=== PATIENT | female | born 2000 | race Two or more races ===

== ENCOUNTER → 2018-10-21 | Outpatient (CLI) | payer OTHER ==
--- NOTE | 2018-10-23 10:27 | MR ---
EXAMINATION TYPE: MR ankle LT wo con DATE OF EXAM: 10/21/2018 COMPARISON: None HISTORY: Left ankle pain with known left ankle sprain. She describes swelling and limited range of mo tion since August 2017. TECHNIQUE: Multiplanar, multisequence images of the left ankle were acquired per department protocol without int ravenous contrast. FINDINGS: There is minimal dorsal subcutaneous edema over the tibiotalar joint and hindfoot extending laterally at the ankle joint. There is fluid surrounding the tibialis posterior tendon with tendon thickening the flexor digitorum longus and flexor hallucis longus are unremarkable. Anterior to the tendons there is a small tibiotal ar joint effusion without internal complexity. There are long segment split tears identified of both the peroneus brevis and peroneus longus such as on axial series 301 image 12 seen subtly and on image 9 and 10 seen within the Proteus longus and pe roneal brevis respectively on these images. There is superficial subcutaneous fat stranding overlying these tendons on image 11. Increased signal is seen at the insertion of the Proteus brevis without f ifth metatarsal abnormal bone marrow signal. There is abnormal bone marrow signal of the medial malleolus and medial talus identified as kissing c ontusions from impaction injury. There is a complete tear of the anterior talofibular ligament and pa rtial-thickness tear of the posterior talofibular ligament. The deltoid ligament appears intact with very minimal increased signal suggesting low-grade injury. No discrete fracture line is seen on T1 sequences. The plantar fascia and Achilles tendon appear unre markable. The talar dome is intact. The sinus tarsus is unremarkable. IMPRESSION: 1. Full-thickness tear of the anterior talofibular ligament and partial thickness tear of the posteri or talofibular ligament. 2. Osseous kissing contusions of the medial malleolus and medial talus without linear T1 signal to in dicate occult fracture. 3. Long segment split tears of the Proteus brevis and peroneal longus measuring approximately 3 cm ea ch. These are seen distal to the ankle joint. 4. Posterior tibialis tenosynovitis 5. Nonspecific subcutaneous edema over the lateral ankle joint and dorsal ankle joint. 5. Small uncomplicated tibiotalar joint effusion. 6. Low-grade deltoid ligament sprain.
== END | disposition home or self-care (01) ==
LOC: RADMRIMAIN 06:32
PROVIDERS: ATTEND Orthopaedic Surgery
DX: S90.02XA Contusion of left ankle, initial encounter (principal); S93.492A Sprain of other ligament of left ankle, initial encounter; B96.4 Proteus (mirabilis) (morganii) as the cause of diseases classified elsewhere; M65.9 Synovitis and tenosynovitis, unspecified